=== PATIENT | female | born 1955 | race African-American/Black ===

== ENCOUNTER → 2020-10-31 | Outpatient (CLI) | payer OTHER ==
[2015-04-22 13:00] VITALS: BP 123/52
[~2020-10-31] MED LIST: ASPI-630 PO; CARV3.1230 PO; CARV6.25 PO; CRESTOR10 MG PO; CRESTOR5 MG PO; DULO20CA50 PO; LISI30TA4 PO; OLAN5TAB9 PO; OXYC30TA3 PO; OXYC30TA64 PO; TIZA4TAB2 PO; [UNRECOGNIZED DRUG - CODE] PO
--- NOTE | 2020-10-31 17:27 | RAD ---
PROCEDURE: MG 2D BILAT SCREENING HISTORY: The patient is 65 years old and is seen for Reason: SCREENING / Spl. Instructions: / Histor y: . COMPARISON: August 07, 2017 TECHNIQUE: CC and MLO views of both breasts were obtained. Images were processed by the [employer] computer-aided detection system. DENSITY: There are scattered fibroglandular densities. FINDINGS: Left breast: Small round focal asymmetry within the left upper outer breast measures 0.5 cm approxima tely 3.7 cm from the nipple. Unchanged left additional upper outer mass, likely intramammary lymph no de. No suspicious microcatheter opacification. Right breast: No suspicious macrocalcification, mass or architectural distortion. IMPRESSION: 1. Small rounded focal asymmetry within the left upper outer breast. Recommend spot compression view and ultrasound to further evaluate. BI-RADS category 0 Incomplete: Needs additional imaging evaluation Patient entered into a reminder system for annual screening mammogram. Electronically signed by: David Rosado DO (10/31/2020 5:24 PM) [id number]
== END ==
LOC: MAMMO 10:15
PROVIDERS: ATTEND Family Medicine
DX: Z12.31 Encounter for screening mammogram for malignant neoplasm of breast (principal); N64.89 Other specified disorders of breast
CPT/HCPCS: 77067

== ENCOUNTER → 2020-11-08 | Outpatient (CLI) | payer OTHER ==
[2015-04-22 13:00] VITALS: BP 123/52
--- NOTE | 2020-11-08 17:18 | RAD ---
DATE: 11/08/2020 EXAM: DIGITAL DIAGNOSTIC LT, BREAST LEFT HISTORY: Recall from screening mammogram for focal asymmetry in the upper outer left breast approximately 4 cm posterior to the nipple COMPARISON: Screening mammogram 10/31/2020 This study was interpreted with the benefit of Computerized Aided Detection (CAD). Breast Density: SCATTERED The breast parenchyma shows scattered fibroglandular densities. Breast parenchyma level B. FINDINGS: MAMMOGRAM: The ovoid, circumscribed 5 mm focal asymmetry in the left breast at 2:00 4 cm the nipple persists on spot compression cc view but is less conspicuous on the spot compression MLO view and full-field ML view. ULTRASOUND: Ultrasound of the left breast at 2:00, 4 cm the nipple demonstrates a ovoid, hypoechoic mass measuring 4 x 3 x 3 mm. This is parallel in orientation, circumscribed, and may be a cyst with an internal septation or a small amount of debris. There is no vascularity or posterior acoustic shadowing. IMPRESSION: Probably benign 5 mm hypoechoic mass at 2:00, 4 cm the nipple in the left breast, corresponding with mammographic abnormality. This is likely a complicated cyst or clustered microcysts Recommend 6 month follow-up ultrasound to ensure stability. BI-RADS CATEGORY: 3 PROBABLY BENIGN FINDING(S)-SHORT INTERVAL FOLLOW-UP SUGGESTED RECOMMENDED FOLLOW-UP: 6M 6 MONTH FOLLOW-UP PQRS compliance statement: Patient information was entered into a reminder system with a target due date for the next mammogram. Mammography is a sensitive method for finding small breast cancers, but it does not detect them all and is not a substitute for careful clinical examination. A negative mammogram does not negate a clinically suspicious finding and should not result in delay in biopsying a clinically suspicious abnormality. "Our facility is accredited by the [employer] Mammography Program."
== END ==
LOC: US 13:09
PROVIDERS: ATTEND Family Medicine
DX: R92.2 Inconclusive mammogram (principal)
CPT/HCPCS: 76641; 77065